=== PATIENT | male | born 1995 | race Caucasian/White ===

== ENCOUNTER 2019-02-04 23:01 | Emergency (ER) | payer SELFPAY ==
[~2019-02-04] VITALS: Ht 167.6 cm; Wt 79.0 kg
[2019-02-04 23:08] VITALS: BP 115/77
== END 2019-02-04 23:15 | disposition left against medical advice (07) ==
LOC: ER 23:01
DX: Z53.21 Procedure and treatment not carried out due to patient leaving prior to being seen by health care provider (principal)

== ENCOUNTER 2019-02-27 17:28 | Emergency (ER) | payer MEDICAID ==
[~2019-02-27] VITALS: Ht 175.3 cm; Wt 76.0 kg
[2019-02-27] MEDS ORDERED: MORPHINE SULFATE 4 MG/ML CPJ (NOT FOR IM USE) IV ONE (18:45)
[2019-02-27] MEDS ORDERED: ONDANSETRON HCL 4MG/2ML INJ IM ONE (18:45)
[2019-02-27] MEDS ORDERED: ONDANSETRON 4MG ODT PO ONE (19:00)
[2019-02-27] MEDS ORDERED: MORPHINE SULFATE 10 MG/ML CPJ IM ONE (19:00)
[2019-02-27 21:03] VITALS: BP 137/91
== END 2019-02-27 21:35 | disposition home or self-care (01) ==
LOC: ER 17:28
DX: R51 Headache (principal); M54.5 Low back pain; M54.2 Cervicalgia; F15.10 Other stimulant abuse, uncomplicated; F12.10 Cannabis abuse, uncomplicated; V18.4XXA Pedal cycle driver injured in noncollision transport accident in traffic accident, initial encounter; Y93.89 Activity, other specified; Y92.89 Other specified places as the place of occurrence of the external cause
CPT/HCPCS: 70450; 72100; 72125; 96372; 99284; J2270; Q0162